=== PATIENT | male | born 1990 | race Caucasian/White ===

== ENCOUNTER 2016-10-17 18:13 | Emergency (ER) | payer SELFPAY ==
[~2016-10-17] VITALS: Ht 177.8 cm; Wt 111.0 kg
[2016-10-17 18:40] VITALS: Ht 177.8 cm; Wt 111.0 kg
== END 2016-10-17 22:44 | disposition left against medical advice (07) ==
LOC: FTE 18:13
DX: Z53.21 Procedure and treatment not carried out due to patient leaving prior to being seen by health care provider (principal)
CPT/HCPCS: 99281